=== PATIENT | female | born 1960 | race Caucasian/White ===

== ENCOUNTER 2022-01-17 16:39 | Emergency (ER) | payer SELFPAY ==
[2022-01-17 16:55] VITALS: BP 109/66; PULSE 80
[2022-01-17] MEDS: Acetaminophen/HYDROcodone 325-5 MG Tab PO ONE (17:38)
== END 2022-01-17 17:50 | disposition home or self-care (01) ==
LOC: KA.ED 16:39
DX: S42.292A Other displaced fracture of upper end of left humerus, initial encounter for closed fracture (principal); E78.00 Pure hypercholesterolemia, unspecified; I10 Essential (primary) hypertension; E66.9 Obesity, unspecified; Z68.32 Body mass index [BMI] 32.0-32.9, adult; Z79.899 Other long term (current) drug therapy; W01.0XXA Fall on same level from slipping, tripping and stumbling without subsequent striking against object, initial encounter
CPT/HCPCS: 72040; 73030-LT; 99283; A9270-GY

== ENCOUNTER 2022-03-01 16:05 | Inpatient (IN) | payer SELFPAY ==
[2022-03-01] MEDS ORDERED: Sodium Chloride 0.9% 50 ML IV SCH (17:15)
[2022-03-01] MEDS: cefTRIAXone 1 GM Vial IVPUSH SCH (17:31)
[2022-03-01] MEDS: Sodium Chloride 0.9% 10 ML Syringe FLUSH PRN (17:33)
[2022-03-01] MEDS: Furosemide 40 MG/4 ML VIAL IVPUSH ONE (17:33)
[2022-03-01] MEDS: Propranolol 20 MG Tab PO ONE (18:13)
[2022-03-01] MEDS: Enoxaparin 100 MG/1 ML Syringe SUBCUT SCH (18:14)
[2022-03-01] MEDS ORDERED: Azithromycin 500 MG in Sodium Chloride 0.9% 250 ML IV SCH (19:00)
[2022-03-01] MEDS: Sodium Chloride 0.9% 1,000 ML IV ONE ×3 (20:00→22:00)
[2022-03-01] MEDS: Succinylcholine 200 MG/10 ML MDV IV ONE (20:10)
[2022-03-01] MEDS: DOPamine/Dextrose 5%-Water 400 MG/250 ML BAG IV SCH (20:40)
[2022-03-01 21:49] LABS: O2 DELIVERY DEVICE RESUSCITATION BAG; PCO2 ARTERIAL 31 mmHG (35-45)
[2022-03-01 21:50] LABS: BASE EXCESS ARTERIAL -18 mmol/L (-2-3); BICARBONATE,ARTERIAL 10.1 mmol/L (22-26); O2 SATURATION ARTERIAL 99 % (95-98); PO2 ARTERIAL 155 mmHG (80-105)
[2022-03-02 02:00] VITALS: BP 117/57; PULSE 132
== END 2022-03-01 22:45 | DRG 175 ==
LOC: KA.MS 16:05
PROVIDERS: ADMIT Nurse Practitioner Family; ATTEND Student in an Organized Health Care Education/Training Program
PROC: 0D9670Z Drainage of Stomach with Drainage Device, Via Natural or Artificial Opening (ICD-10-PCS; principal; 2022-03-01)
DX: I26.99 Other pulmonary embolism without acute cor pulmonale (principal); J18.9 Pneumonia, unspecified organism; J96.00 Acute respiratory failure, unspecified whether with hypoxia or hypercapnia; J90 Pleural effusion, not elsewhere classified; Z20.822 Contact with and (suspected) exposure to COVID-19
CPT/HCPCS: 36415; 36600; 51702; 71045; 82803; 84484; 85610; A9270-GY; J0330; J1265; J1650; J1940; J3490; J7030